=== PATIENT | female | born 1955 | race Two or more races ===

== ENCOUNTER 2021-12-14 14:26 | Outpatient (CLI) | payer OTHER ==
[2021-12-20] MEDS ORDERED: SYNTHROID100 MCG PO (14:45)
== END 2021-12-14 14:30 | disposition home or self-care (01) ==
LOC: RAD 14:26
PROVIDERS: ATTEND Orthopaedic Surgery
DX: M25.571 Pain in right ankle and joints of right foot (principal)

== ENCOUNTER 2021-12-15 11:27 | Outpatient (CLI) | payer OTHER ==
[2021-12-20] MEDS ORDERED: SYNTHROID100 MCG PO (14:45)
== END 2021-12-15 11:28 | disposition home or self-care (01) ==
LOC: LAB 11:27
PROVIDERS: ATTEND Orthopaedic Surgery
DX: I10 Essential (primary) hypertension (principal); Z76.89 Persons encountering health services in other specified circumstances; D64.9 Anemia, unspecified; D68.8 Other specified coagulation defects; N39.0 Urinary tract infection, site not specified; A49.02 Methicillin resistant Staphylococcus aureus infection, unspecified site; E88.9 Metabolic disorder, unspecified; E11.65 Type 2 diabetes mellitus with hyperglycemia

== ENCOUNTER 2021-12-25 05:43 | Day surgery (SDC) | payer OTHER ==
[~2021-12-25 05:43] MED LIST: SYNTHROID100 MCG PO
== END 2021-12-25 16:43 | disposition home or self-care (01) ==
LOC: CIR.AMB 05:43
PROVIDERS: ATTEND Orthopaedic Surgery
DX: M85.671 Other cyst of bone, right ankle and foot (principal); M20.5X1 Other deformities of toe(s) (acquired), right foot; M20.11 Hallux valgus (acquired), right foot; E03.9 Hypothyroidism, unspecified

== ENCOUNTER 2022-03-27 09:24 | Outpatient (CLI) | payer OTHER | END 2022-03-27 09:31 | disposition home or self-care (01) | LOC: LAB 09:24 | PROVIDERS: ATTEND Orthopaedic Surgery | DX: E55.9 Vitamin D deficiency, unspecified (principal); E56.1 Deficiency of vitamin K; M85.9 Disorder of bone density and structure, unspecified; M20.5X1 Other deformities of toe(s) (acquired), right foot ==

== ENCOUNTER 2024-08-04 08:17 | Outpatient (CLI) | payer OTHER | END 2024-08-04 08:23 | disposition home or self-care (01) | LOC: RAD 08:17 | DX: M25.552 Pain in left hip (principal) ==